=== PATIENT | female | born 1975 | race Caucasian/White ===

== ENCOUNTER 2024-04-26 20:26 | Emergency (ER) | payer BC ==
[2024-04-26 20:31] VITALS: TEMP 97.8; BMI 27.4
[2024-04-26 21:36] LABS: BASO % 0.7 % (0-2.0); EOS % 0.5 % (0-4.5); HEMATOCRIT 40.3 % (32.4-45.2); LYMPH % 28.6 % (8-40); MCH 24.7 pg (25.7-33.7); MCHC 32.2 g/dl (32.0-36.0); MEAN CELL VOLUME 76.5 fl (80-96); MEAN PLT VOLUME 9.5 fl (7.5-11.1); MONO % 3.8 % (3.8-10.2); NEUT % 66.4 % (42.8-82.8); PLATELET COUNT 178 10^3/uL (134-434); RBC 5.27 M/mm3 (3.60-5.2); RDW 14.4 % (11.6-15.6); WHITE BLOOD COUNT 9.7 K/mm3 (4.0-10.0)
[2024-04-26 21:43] LABS: INR 0.99 (0.83-1.09); PROTHROMBIN TIME (PATIENT) 11.2 SEC (9.7-13.0)
[2024-04-26] MEDS: SODIUM CHLORIDE 1,000 ML IV STA (21:45)
[2024-04-26 21:46] LABS: ACTIVATED PTT 34.9 SECONDS (25.2-36.5)
[2024-04-26 21:54] LABS: CALCIUM 9.3 mg/dL (8.5-10.1)
[2024-04-26 21:55] LABS: ALBUMIN 3.5 g/dl (3.4-5.0); BLOOD UREA NITROGEN 16.8 mg/dL (7-18); MAGNESIUM 1.9 mg/dL (1.8-2.4)
[2024-04-26 22:00] LABS: BILIRUBIN,TOTAL 0.3 mg/dL (0.2-1); TOT PROT 7.3 g/dl (6.4-8.2)
[2024-04-26 22:48] VITALS: BP 125/65; PULSE 87; RESP 11
== END 2024-04-27 00:13 | disposition home or self-care (01) ==
LOC: JER 20:26
DX: R00.2 Palpitations (principal); R00.0 Tachycardia, unspecified
CPT/HCPCS: 36415; 71046-TC-FY; 80053; 83735; 84439; 84443; 84484; 85025; 85379; 85610; 85730; 93005; 93010; 99285-25